=== PATIENT | female | born 1985 | race Caucasian/White ===

== ENCOUNTER 2019-03-04 18:47 | Emergency (ER) | payer OTHER ==
[~2019-03-04] VITALS: Ht 162.6 cm; Wt 80.7 kg
[2019-03-04 20:05] LABS: BASOPHIL % 0.4 % (0-2); PLATELET COUNT 331 x10^3mcL (130-400); RED CELL DISTRIBUTION WIDTH 13.1 % (11.5-14.5)
[2019-03-04 20:12] LABS: CALCIUM 9.2 mg/dL (8.5-10.1); CHLORIDE SERUM 102 mmol/L (98-107); CREATININE SERUM 0.9 mg/dL (0.6-1.0); GFR1 > 60 mL/min; GLUCOSE SERUM 84 mg/dL (74-106); POTASSIUM SERUM 3.9 mmol/L (3.5-5.1); SODIUM SERUM 137 mmol/L (136-145)
[2019-03-04 20:17] LABS: ALBUMIN 4.7 g/dL (3.4-5.0); ALKALINE PHOSPHATASE 72 U/L (46-116); ALT/SGPT 36 U/L (14-59); AST/SGOT 22 U/L (15-37); BILIRUBIN TOTAL 0.61 mg/dL (0.20-1.00); TOTAL PROTEIN, SERUM 9.1 g/dL (6.4-8.2)
[2019-03-04 21:26] LABS: AMPHETAMINE QUAL UR NONE DETECTED (See below)
[2019-03-05 01:45] VITALS: BP 109/68
== END 2019-03-05 01:45 | disposition home or self-care (01) ==
LOC: ED 18:47
PROVIDERS: Emergency Medicine
DX: R07.89 Other chest pain (principal); R06.02 Shortness of breath; R20.0 Anesthesia of skin
CPT/HCPCS: 36415; 83880; 85378; Q0092

== ENCOUNTER → 2019-03-21 | Outpatient (CLI) | payer OTHER | END | disposition home or self-care (01) | LOC: US 16:07 | PROC: BW4GZZZ Ultrasonography of Pelvic Region (ICD-10-PCS; principal; 2019-03-21) | DX: N92.6 Irregular menstruation, unspecified (principal) ==